=== PATIENT | male | born 1935 ===

== ENCOUNTER 2018-12-03 04:52 | Emergency (ER) | payer MEDICARE ==
--- OUTSIDE RECORDS SUMMARY | 2018-12-03 05:04 | XMS REPORT | Continuity of Care Document ---
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 Problems Description No Information Available Social History Type Date Description Comments Sex Unknown Tobacco Use Start: Unknown Nonsmoker ETOH Use Denies alcohol use Tobacco Use Start: Unknown Nonsmoker Smoking Status Reviewed: 11/19/18 Nonsmoker Allergies, Adverse Reactions, Alerts Description No Known Drug Allergies Medications Active Medications SIG Qnty Indications Ordering Date Provider Nystatin swish and swallow 500ml B37.0 Fide Wasserman 11/19/2018 [id number] 5ml of solution 4 London, TRACTOR CRANE OPERATOR Suspension times a day x 7-10 days Triamcinolone apply to affected 80gm R21 Fide Wasserman 11/05/2018 Acetonide skin on legs London, TRACTOR CRANE OPERATOR 0.1% Cream twice daily as needed for up to 14 days Doxycycline Hyclate one tab by mouth 42tabs Fide Wasserman 10/29/2018 100mg twice a day London, TRACTOR CRANE OPERATOR Tablets History Medications Triamcinolone Acetonide apply to affected 80gm R21 Fide Ann 10/12/2018 - skin on legs London, TRACTOR CRANE OPERATOR 11/02/2018 0.1% Cream twice daily as needed for up to 14 days No Active Medications Unknown 10/02/2018 - 10/12/2018 Immunizations Description No Information Available Vital Signs Date Vital Result Comment 11/19/2018 9:30am BP Systolic 118 mmHg BP Diastolic 56 mmHg Heart Rate 90 /min Body Temperature 97.7 F Respiratory Rate 16 /min Height 68.5 inches 5'8.50" measured Weight 123.00 lb BMI (Body Mass Index) 18.4 kg/m2 10/12/2018 4:14pm BP Systolic 122 mmHg BP Diastolic 60 mmHg Heart Rate 96 /min Body Temperature 98.6 F Height 68.5 inches 5'8.50" measured Weight 131.00 lb BMI (Body Mass Index) 19.6 kg/m2 Results Test Date Facility Test Result H/L Range Note Lyme Disease AB 10/23/2018 [facility] IgG Immunoblot Positive Abnormal Negative Immunoblot WB IgG detected against See Comment kDa 1 IgM Immunoblot Positive Abnormal Negative IgM detected against p41,p23 kDa Lyme Disease Interpretation See Comment 2 Laboratory test 10/15/2018 [facility] Hemoglobin A1c 5.7% % 4.1- 5.7 finding (607)- - (Fma) HCV AB (Fma) neg negative Hepatitis B Virus 10/15/2018 [facility] HBsAg Screen Negative Negative 3 (Profile ) [address] [place] [address] (607)- - Hep Be Ag Negative Negative Hep B Core Ab, IgM Negative Negative Hep B Core Ab, Tot Negative Negative Hep B Surface Ab, Qual Non Reactive 4 Hep Be Ab Negative Negative Laboratory test 10/15/2018 [facility]) PSA 0.3 ng/mL 0.0-4.0 finding Alkaline Phos 10/03/2018 [facility] Alkaline 125 U/L 40 - 129 Isoenzymes Phosphatase Alp Liver 1% 54.2 % 27.8-76.3 Alp Liver 1 67.8 IU/L 16.2-70.2 Alp Liver 2% 10.7 % Abnormal 0.0-8.0 Alp Liver 2 13.4 IU/L Abnormal 0.0-5.8 Alp Bone % 35.1 % 19.1-67.7 Alp Bone 43.9 IU/L Abnormal 12.1-42.7 Alp Intestine % 0.0 % 0.0-20.6 Alp Intestine 0.0 IU/L 0.0-11.0 Alp Placental NotPresent 5 Jessica Panel--LD ([facility]) 10/02/2018 [facility] Rheumatoid Factor < 10 IU/mL Normal < 15 6 U1 DEVELOPMENTAL SERVICES WORKER/SNRNP Igg Autoabs 10/02/2018 [facility] U1 DEVELOPMENTAL SERVICES WORKER IgG Autoabs 0.4 U 7 Ssa/SSB Abs Igg 10/02/2018 [facility] SS-A/Ro Antibody 0.3 U 8 SS-B/La Antibody <0.2 U 9 Connective Tissue Panel 10/02/2018 [facility] Anti-Nuclear Antibody 1.9 U High 10 Cyclic Citrullinated Peptide 29.0 U Abnormal 11 Interpretation See Comment 12 Tick-Borne Disease AB 10/02/2018 [facility] Anaplasma phagocytophilium <1:64 titer <1:64 13 Panel Babesiosis Evaluation <1:64 titer <1:64 14 Ehrlichia chaffeensis IgG AB <1:64 titer <1:64 15 Lyme Disease Serology Positive Negative 16 Laboratory test finding 10/02/2018 [facility] C Reactive Protein 74.11 mg/L High <8.01 17 Syphillis Igg W/Reflex RPR Negative Negative 18 Herpes Simplex PCR 10/02/2018 [facility] Herpes Source penis HSV 1 PCR Negative Negative HSV 2 PCR Negative Negative 19 Varicella Zoster Culture 10/02/2018 [facility] Varicella Zoster Source penis Varicella Zoster Result Negative Negative 20 Laboratory test 10/02/2018 [facility] Troponin-I/TnI <0.05 NG/ML 0- 0.64 finding (607)- - HIV 1&2 Antibody Screen (Fma) neg Negative Sedimentation Rate 78mm Comprehensive Metabolic 10/02/2018 [facility]) Sodium 136 mEq/L 134-149 Prof Potassium 4.2 mEq/L 3.6-5.5 Chloride 97 mEq/L 94-112 Carbon Dioxide 25 mEq/L 21-32 Glucose 166 mg/dL High 70-105 BUN 8 mg/dL 6-26 21 Creatinine 0.7 mg/dL 0.6-1.4 BUN/Creat Ratio 11.4 CALC 8.0-36.0 Calcium 8.5 mg/dL Low 8.6-10.2 22 Total Protein 6.6 g/dL 6.4-8.3 23 Albumin 3.6 g/dL Low 3.8-5.5 24 Globulin 3.0 g/dL 2.0-4.8 A/G Ratio 1.2 CALC 0.6-2.3 Alk. Phosphatase 106 U/L High 22-95 25 Alt (SGPT) 14 U/L 7-35 Ast (Sgot) 15 U/L 5-34 Total Bilirubin 0.8 mg/dL 0.2-1.3 GFR Non- >60 ml/min/1.73m^ >=60 GFR >60 ml/min/1.73m^ >=60 Laboratory test finding 10/02/2018 [facility](a) TSH 3.80 mIU/L 0.50-6.00 CBC Electronic Fma 10/02/2018 [facility](a) WBC 8.8 x10^3/UL 4.0- 10.0 RBC 4.43 x10^6/UL 3.93-6.00 HGB 12.4 g/dL 12.0-17.0 HCT 38 % 35-50 MCV 85.8 fL 80.0-95.0 MCH 28.0 pg 25.6-32.2 MCHC 32.6 g/dL 32.2-36.0 RDW-CV 15.0 % High 11.6-14.4 26 PLT 244 x10^3/UL 163-400 MPV 11.1 fL 9.4-12.4 Delmi# 6.73 x10^3/UL High 1.56-6.13 27 Lymph# 1.03 x10^3/UL Low 1.18-3.74 28 Colquitt# 0.91 x10^3/UL High 0.24-0.82 29 Eos # 0.1 x10^3/UL 0.0-0.5 Baso # 0.02 x10^3/UL 0.01-0.08 Delmi% 76.3 % High 34.0-70.0 30 Lymph % 11.7 % Low 20.0-52.0 31 [place]itt% 10.3 % 5.0-12.0 Eos% 1.4 % 0.7-7.0 Baso% 0.2 % 0.1-1.2 1 RESULT: p66,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 IgM blot criteria is of diagnostic utility only during the first 4 weeks of early Lyme disease. ADDITIONAL INFORMATION Per CDC criteria, the Lyme IgG Immunoblot is interpreted as positive if IgG-class antibodies are detected to >=5 B. burgdorferi proteins, and the Lyme IgM Immunoblot is interpreted as positive if IgM-class antibodies are detected to >=2 B. burgdorferi proteins. Immunoblot patterns not meeting these criteria should not be interpreted as positive. Epitopes from certain B. burgdorferi proteins (e.g., p41) are conserved across other bacteria, which may lead to the detection of IgM- and/or IgG-class antibodies on the Lyme disease immunoblots in patients without Lyme disease. Immunoblot should only be ordered on specimens that are positive or equivocal by a FDA-licensed Lyme disease antibody screening test (e.g., EIA). Results of the Lyme IgM immunoblot should not be considered in patients with >= 30 days of symptoms. Test Performed by: [facility] [place] [address] 3 1 sst 4 Non Reactive: Inconsistent with immunity, less than 10 mIU/mL Reactive: Consistent with immunity, greater than 9.9 mIU/mL 5 REFERENCE VALUE Not present Test Performed by: [facility] - [address] [id number] 6 3 gold top sst tubes sent viral culture (penile) [id number] 7 REFERENCE VALUE <1.0 (Negative) Test Performed by: [facility] - [address] [address] 8 REFERENCE VALUE <1.0 (Negative) 9 REFERENCE VALUE <1.0 (Negative) Test Performed by: [address] [id number] 10 Interpretation: Weak Positive (1.1-2.9) REFERENCE VALUE <=1.0 (Negative) 11 Interpretation: Weak Positive (20.0-39.9) REFERENCE VALUE <20.0 (Negative) 12 RESULT: Compatible with rheumatoid arthritis. Test Performed by: [facility] - [address] [id number] 13 ADDITIONAL INFORMATION This test was developed using an analyte specific reagent. Its performance characteristics were determined by [facility] in a manner consistent with CLIA requirements. This test has not been cleared or approved by the U.S. Food and Drug Administration. 14 ADDITIONAL INFORMATION This test was developed using an analyte specific reagent. Its performance characteristics were determined by [facility] in a manner consistent with CLIA requirements. This test has not been cleared or approved by the U.S. Food and Drug Administration. 15 ADDITIONAL INFORMATION This test was developed using an analyte specific reagent. Its performance characteristics were determined by [facility] in a manner consistent with CLIA requirements. This test has not been cleared or approved by the U.S. Food and Drug Administration. 16 Not diagnostic. Supplemental testing by immunoblot has been ordered by reflex. Test Performed by: [facility] - [address] [address] 17 3 gold top sst tubes sent viral culture (penile) [id number] 18 3 gold top sst tubes sent viral culture (penile) [id number] 19 ADDITIONAL INFORMATION This test has been modified from the title 1 tutor's instructions. Its performance characteristics were determined by [facility] in a manner consistent with CLIA requirements. This test has not been cleared or approved by the U.S. Food and Drug Administration. Test Performed by: [facility] - [address] [address] 20 ADDITIONAL INFORMATION This test was developed and its performance characteristics determined by [facility] in a manner consistent with CLIA requirements. This test has not been cleared or approved by the U.S. Food and Drug Administration. Test Performed by: [facility] - [address] [address] 21 RESULTS VERIFIED BY REPEAT ANALYSIS 22 RESULTS VERIFIED BY REPEAT ANALYSIS 23 RESULTS VERIFIED BY REPEAT ANALYSIS 24 RESULTS VERIFIED BY REPEAT ANALYSIS 25 RESULTS VERIFIED BY REPEAT ANALYSIS 26 RESULTS VERIFIED BY REPEAT ANALYSIS 27 RESULTS VERIFIED BY REPEAT ANALYSIS 28 RESULTS VERIFIED BY REPEAT ANALYSIS 29 RESULTS VERIFIED BY REPEAT ANALYSIS 30 RESULTS VERIFIED BY REPEAT ANALYSIS 31 RESULTS VERIFIED BY REPEAT ANALYSIS Procedures Date Code Description Status 10/02/2018 52738 Electrocardiogram Complete Completed Medical Devices Description No Information Available Encounters Type Date Location Provider Dx Diagnosis Office Visit 10/12/2018 [facility] Office Fide Wasserman R21 Rash and other 4:15p GINA London nonspecific skin eruption R73.01 Impaired fasting glucose R94.5 Abnormal results of liver function studies Z12.5 Encounter for screening for malignant neoplasm of prostate Z11.59 Encounter for screening for other viral diseases Office Visit 10/02/2018 10:30a [facility] Office Bjorn Harely, R53.81 Other malaise M.D. Z11.4 Encounter for screening for human immunodeficiency virus Assessments Date Code Description Provider 11/19/2018 B37.0 Candidal stomatitis Fide London NP 11/19/2018 A69.20 Lyme disease, unspecified Fide London NP 11/19/2018 R94.5 Abnormal results of liver function studies Fide London NP 11/19/2018 R63.4 Abnormal weight loss iFde London NP 10/15/2018 R73.01 Impaired fasting glucose Fide London NP 10/15/2018 Z11.59 Encounter for screening for other viral Fide London NP diseases 10/15/2018 Z12.5 Encounter for screening for malignant Fide Lisy London NP neoplasm of prostate 10/12/2018 R21 Rash and other nonspecific skin eruption Fide London NP 10/12/2018 R73.01 Impaired fasting glucose Fide London NP 10/12/2018 R94.5 Abnormal results of liver function studies Fide London NP 10/12/2018 Z12.5 Encounter for screening for malignant Fide Lnodon NP neoplasm of prostate 10/12/2018 Z11.59 Encounter for screening for other viral Fide London NP diseases 10/02/2018 R53.81 Other malaise Bjorn Harley M.D. 10/02/2018 Z11.4 Encounter for screening for human Bjorn Harley M.D. immunodeficiency virus [HIV] Plan of Treatment Future Appointment(s):12/17/2018 4:30 pm - Bjorn [facility] M.D. at [facility]11/19/2018 - Fide London NPB37.0 Candidal stomatitisNew Medication :Nystatin [id number] Unit/ML - swish and swallow 5ml of solution 4 times a day x 7- 10 daysComments:patient instructed to call back if condition fails to improve or worsens.A69.20 Lyme disease, unspecifiedComments:What is Lyme disease?Lyme disease is an illness that can make you feel like you have the flu. It canalso cause a rash, fever, or nerve, joint, or heart problems.People can get Lyme disease after beingbitten by a tiny insect called a tick. When a certain type of tick bites you, it can transmit the germ that causes Lyme disease from its body to yours. But a tick can infect you only if it stays attached for at least a day and a half.The ticks that carry Lyme disease feed on deer and mice. They are only about the size of a poppy seed when they are young, which is when they most often spread Lyme disease. They grow to about the size of a sesame seed as adults (figure 1). Ticks are found in tall grassand on shrubs, and can attach to animals and people walking by. Ticks cannot fly or jump.What are the symptoms of Lyme disease?Symptoms can start days or weeks after a tick bite. They include:A rash where you were bitten ?? The rash often appears within a month of getting bitten. It is red, but its center can be the color of your skin. It might get bigger over a few days. To some, it looks like a "bull's eye " (picture 1).FeverFeeling tiredBody aches and painsHeart problems such as a slowed heart rateHeadache and stiff neckFeelings of pain, weakness, or numbnessIf a person is not treated, further symptoms can occur months to years after a tick bite. These include:Pain and swelling of joints, such as your kneesTrouble with your memory and thinkingSkin problems, such as skin swelling or thinning (this occurs mostly in [place])Should I see a doctor or nurse?Yes. If you have symptoms of Lyme disease, see a doctor or nurse. Some people don't know that they were bitten by a tick. Or they might not remember having a rash or other early symptoms.Is there a test for Lyme disease?Yes. Blood tests can showif you are infected with the germ that causes Lyme disease. But it takes time for the blood tests toturn positive. This means the tests won't work if you get them right after being bitten. Also, the blood tests usually come back negative when you have the initial rash that goes with Lyme disease. Because of this, if you have the rash, you do not need a blood test to confirm that you have Lyme disease.If your doctor or nurse suspects you have Lyme disease, he or she will do an exam and ask you questions. The doctor or nurse will use this information (and your blood test result, if needed) to decideabout treatment.How is Lyme disease treated?Lyme disease is usually treated with antibiotics. There are a few different types. Treatment with antibiotics should help your symptoms go away. Sometimes, symptoms improve quickly. Other times, it can take weeks or months for symptoms to go away.What if I am ?If you are , talk to your doctor. Some medicines for Lyme disease are safe to takeif you are , but others are not.Can Lyme disease be prevented? The best way to prevent Lyme disease is to avoid getting bitten by a tick. But if you were already bitten, your doctor might give you an antibiotic. In some situations, this can reduce your chances of getting Lyme disease.To try to avoid getting bitten by a tick, you can:Wear shoes, long-sleeved shirts, and long pants when you go outside. Keep ticks away from your skin by tucking your pants into your socks.Wear light colors so youcan spot any ticks that get on your clothes.Wear bug spray or cream that contains DEET. (Do not use DEET on babies younger than 2 months.) On your clothes and gear, you can use bug repellents that havea chemical called "permethrin."Shower within 2 hours of being outdoors if you think you have been inan area where there are ticks.Put dry clothes briefly (for about 4 minutes) in a dryer after being outdoors.Check your clothes and body for ticks after being outdoors. Be sure to check your scalp, waist, armpits, groin, and backs of your knees. Check your children, too.If you live in a place that has deer or mice nearby, take steps to keep those animals away. [place] and mice carry ticks.If you find a tick on your body or on your child, use tweezers to grab it. Then pull it out slowly and gently. Afterthat, wash the area with soap and water.You do not need to keep the tick. But knowing what it lookedlike can help your doctor decide about your treatment. See if you can tell:Its color and sizeIf it was attached to your skin or just resting on your skinIf it was big, round, and full of bloodYou should see your doctor or nurse if you have a tick and you cannot get it off.You should also call your doctor or nurse if you think you have had a tick attached for at least 36 hours (a day and a half). Thenhe or she can decide if you need to take a dose of an antibiotic to help prevent Lyme. Doctors only recommend antibiotics to prevent Lyme disease in some situations. It depends on your age, where you live, what kind of tick bit you, and how long it was attached.If you or your child was bitten by a deer tick, you should watch the area around the bite for a month to see if a rash appears.Follow up:1 month with MDR94.5 Abnormal results of liver function mlybinsZ65.4 Abnormal weight lossComments:refer to gastro - per Chris Harleyments:Medication Management Patient Understands medications he 's taking? Yes No Are there Barriers to Adherence? Yes No Has the patient been asked about herbal supplements and therapies, andOTC meds? Yes No Care Plan1. Patient has been queried about patient's goals/preferences and functional/ lifestyle goals at relevant visits. If relevant, describe: na2. Treatment goals as explained to the patient: above3. Are there barriers to meeting treatment goals? Yes No If Yes, please describe: disease process 4. Self-Management goals as described to the patient: Yes NoAs always, we strongly encourage a healthy diet and making physical activity a part of your every day life. If you have questions about how or where to start, please contact the office. Functional Status Description No Information Available Mental Status Description No Information Available Referrals Description No Information Available
--- OUTSIDE RECORDS SUMMARY | 2018-12-03 05:05 | XMS REPORT | Continuity of Care Document ---
:1935 External Reference #:[id number] Author Name Fide London NP Address [address] [place] [address] Care Team Providers Name Role Phone Bjorn Harley MD - Family Medicine Care Team Information Brokerage Coordinator [phone] Problems Description No Information Available Social History Type Date Description Comments Sex Unknown Tobacco Use Start: Unknown Nonsmoker ETOH Use Denies alcohol use Tobacco Use Start: Unknown Nonsmoker Smoking Status Reviewed: 10/16/18 Nonsmoker Allergies, Adverse Reactions, Alerts Description No Known Drug Allergies Medications Active Medications SIG Qnty Indications Ordering Provider Date Triamcinolone Acetonide apply to affected 80gm R21 Fide Wasserman 10/12/2018 skin on legs GINA London 0.1% Cream twice daily as needed for up to 14 days History Medications No Active Medications Unknown 10/02/2018 - 10/12/2018 Immunizations Description No Information Available Vital Signs Date Vital Result Comment 10/12/2018 4:14pm BP Systolic 122 mmHg BP Diastolic 60 mmHg Heart Rate 96 /min Body Temperature 98.6 F Height 68.5 inches 5'8.50" measured Weight 131.00 lb BMI (Body Mass Index) 19.6 kg/m2 10/02/2018 10:40am BP Systolic 114 mmHg BP Diastolic 62 mmHg Heart Rate 88 /min Body Temperature 98.4 F Respiratory Rate 12 /min Height 68.5 inches 5'8.50" measured Weight 132.00 lb BMI (Body Mass Index) 19.8 kg/m2 Results Test Date Facility Test Result H/L Range Note Laboratory test 10/15/2018 [facility]) PSA (ALL Lab <pending> 0.0-4.0 finding Comp) Laboratory test 10/15/2018 [facility] Hemoglobin A1c 5.7% % 4.1- 5.7 finding (607)- - (Fma) HCV AB (a) <pending> negative Alkaline Phos Isoenzymes 10/03/2018 [facility] Alkaline Phosphatase 125 U/L 40 - 129 Alp Liver 1% 54.2 % 27.8-76.3 Alp Liver 1 67.8 IU/L 16.2-70.2 Alp Liver 2% 10.7 % Abnormal 0.0-8.0 Alp Liver 2 13.4 IU/L Abnormal 0.0-5.8 Alp Bone % 35.1 % 19.1-67.7 Alp Bone 43.9 IU/L Abnormal 12.1-42.7 Alp Intestine % 0.0 % 0.0-20.6 Alp Intestine 0.0 IU/L 0.0-11.0 Alp Placental NotPresent 1 Jessica Panel--LD ([facility]) 10/02/2018 [facility] Rheumatoid Factor < 10 IU/mL N <15 2 U1 MAIL SERVICE COORDINATOR/SNRNP Igg Autoabs 10/02/2018 [facility] U1 MAIL SERVICE COORDINATOR IgG Autoabs 0.4 U 3 Ssa/SSB Abs Igg 10/02/2018 [facility] SS-A/Ro Antibody 0.3 U 4 SS-B/La Antibody <0.2 U 5 Connective Tissue Panel 10/02/2018 [facility] Anti-Nuclear Antibody 1.9 U High 6 Cyclic Citrullinated Peptide 29.0 U Abnormal 7 Interpretation See Comment 8 Tick-Borne Disease AB 10/02/2018 [facility] Anaplasma phagocytophilium <1:64 titer <1:64 9 Panel Babesiosis Evaluation <1:64 titer <1:64 10 Ehrlichia chaffeensis IgG AB <1:64 titer <1:64 11 Lyme Disease Serology Positive Negative 12 Laboratory test finding 10/02/2018 [facility] C Reactive Protein 74.11 mg/L High <8.01 13 Syphillis Igg W/Reflex RPR Negative Negative 14 Viral Culture Non Respiratory <pending> Herpes Simplex PCR 10/02/2018 [facility] Herpes Source penis HSV 1 PCR Negative Negative HSV 2 PCR Negative Negative 15 Varicella Zoster Culture 10/02/2018 [facility] Varicella Zoster Source penis Varicella Zoster Result Negative Negative 16 Laboratory test 10/02/2018 [facility] Troponin-I/TnI <0.05 NG/ML 0- 0.64 finding (607)- - HIV 1&2 Antibody Screen (a) neg Negative Sedimentation Rate 78mm Comprehensive Metabolic 10/02/2018 [facility]) Sodium 136 mEq/L 134-149 Prof Potassium 4.2 mEq/L 3.6-5.5 Chloride 97 mEq/L 94-112 Carbon Dioxide 25 mEq/L 21-32 Glucose 166 mg/dL High 70-105 BUN 8 mg/dL 6-26 17 Creatinine 0.7 mg/dL 0.6-1.4 BUN/Creat Ratio 11.4 CALC 8.0-36.0 Calcium 8.5 mg/dL Low 8.6-10.2 18 Total Protein 6.6 g/dL 6.4-8.3 19 Albumin 3.6 g/dL Low 3.8-5.5 20 Globulin 3.0 g/dL 2.0-4.8 A/G Ratio 1.2 CALC 0.6-2.3 Alk. Phosphatase 106 U/L High 22-95 21 Alt (SGPT) 14 U/L 7-35 Ast (Sgot) 15 U/L 5-34 Total Bilirubin 0.8 mg/dL 0.2-1.3 GFR Non- >60 ml/min/1.73m^ >=60 GFR >60 ml/min/1.73m^ >=60 Laboratory test finding 10/02/2018 [facility]) TSH 3.80 mIU/L 0.50-6.00 CBC Electronic a 10/02/2018 [facility]) WBC 8.8 x10^3/UL 4.0- 10.0 RBC 4.43 x10^6/UL 3.93-6.00 HGB 12.4 g/dL 12.0-17.0 HCT 38 % 35-50 MCV 85.8 fL 80.0-95.0 MCH 28.0 pg 25.6-32.2 MCHC 32.6 g/dL 32.2-36.0 RDW-CV 15.0 % High 11.6-14.4 22 PLT 244 x10^3/UL 163-400 MPV 11.1 fL 9.4-12.4 Delmi# 6.73 x10^3/UL High 1.56-6.13 23 Lymph# 1.03 x10^3/UL Low 1.18-3.74 24 Coryell# 0.91 x10^3/UL High 0.24-0.82 25 Eos # 0.1 x10^3/UL 0.0-0.5 Baso # 0.02 x10^3/UL 0.01-0.08 Delmi% 76.3 % High 34.0-70.0 26 Lymph % 11.7 % Low 20.0-52.0 27 Coryell% 10.3 % 5.0-12.0 Eos% 1.4 % 0.7-7.0 Baso% 0.2 % 0.1-1.2 1 REFERENCE VALUE Not present Test Performed by: [facility] [address] [place] [address] 2 3 gold top sst tubes sent viral culture (penile) [id number] 3 REFERENCE VALUE <1.0 (Negative) Test Performed by: [facility] [address] [place] [address] 4 REFERENCE VALUE <1.0 (Negative) 5 REFERENCE VALUE <1.0 (Negative) Test Performed by: [facility] [address] [place] [address] 6 Interpretation: Weak Positive (1.1-2.9) REFERENCE VALUE <=1.0 (Negative) 7 Interpretation: Weak Positive (20.0-39.9) REFERENCE VALUE <20.0 (Negative) 8 RESULT: Compatible with rheumatoid arthritis. Test Performed by: [facility] - [address] [address] 9 ADDITIONAL INFORMATION This test was developed using an analyte specific reagent. Its performance characteristics were determined by [facility] in a manner consistent with CLIA requirements. This test has not been cleared or approved by the U.S. Food and Drug Administration. 10 ADDITIONAL INFORMATION This test was developed using an analyte specific reagent. Its performance characteristics were determined by [facility] in a manner consistent with CLIA requirements. This test has not been cleared or approved by the U.S. Food and Drug Administration. 11 ADDITIONAL INFORMATION This test was developed using an analyte specific reagent. Its performance characteristics were determined by [facility] in a manner consistent with CLIA requirements. This test has not been cleared or approved by the U.S. Food and Drug Administration. 12 Not diagnostic. Supplemental testing by immunoblot has been ordered by reflex. Test Performed by: [facility] - [address] [address] 13 3 gold top sst tubes sent viral culture (penile) [id number] 14 3 gold top sst tubes sent viral culture (penile) [id number] 15 ADDITIONAL INFORMATION This test has been modified from the air export agent's instructions. Its performance characteristics were determined by [facility] in a manner consistent with CLIA requirements. This test has not been cleared or approved by the U.S. Food and Drug Administration. Test Performed by: [facility] [address] [place] [address] 16 ADDITIONAL INFORMATION This test was developed and its performance characteristics determined by [facility] in a manner consistent with CLIA requirements. This test has not been cleared or approved by the U.S. Food and Drug Administration. Test Performed by: [facility] - [address] [address] 17 RESULTS VERIFIED BY REPEAT ANALYSIS 18 RESULTS VERIFIED BY REPEAT ANALYSIS 19 RESULTS VERIFIED BY REPEAT ANALYSIS 20 RESULTS VERIFIED BY REPEAT ANALYSIS 21 RESULTS VERIFIED BY REPEAT ANALYSIS 22 RESULTS VERIFIED BY REPEAT ANALYSIS 23 RESULTS VERIFIED BY REPEAT ANALYSIS 24 RESULTS VERIFIED BY REPEAT ANALYSIS 25 RESULTS VERIFIED BY REPEAT ANALYSIS 26 RESULTS VERIFIED BY REPEAT ANALYSIS 27 RESULTS VERIFIED BY REPEAT ANALYSIS Procedures Date Code Description Status 10/02/2018 69537 Electrocardiogram Complete Completed Medical Devices Description No Information Available Encounters Type Date Location Provider Dx Diagnosis Office Visit 10/02/2018 [facility] Office Bjorn Harley, R53.81 Other malaise 10:30a M.DHuong Z11.4 Encounter for screening for human immunodeficiency virus Assessments Date Code Description Provider 10/15/2018 R73.01 Impaired fasting glucose Fide London NP 10/15/2018 Z11.59 Encounter for screening for other viral Fide London NP diseases 10/15/2018 Z12.5 Encounter for screening for malignant Fide London NP neoplasm of prostate 10/12/2018 R21 Rash and other nonspecific skin eruption Fide London NP 10/12/2018 R73.01 Impaired fasting glucose Fide London NP 10/12/2018 R94.5 Abnormal results of liver function studies Fide London NP 10/12/2018 Z12.5 Encounter for screening for malignant Fide London NP neoplasm of prostate 10/12/2018 Z11.59 Encounter for screening for other viral Fide London NP diseases 10/02/2018 R53.81 Other malaise Bjorn Harley M.D. 10/02/2018 Z11.4 Encounter for screening for human Bjorn A. Darlow, M.D. immunodeficiency virus [HIV] Plan of Treatment 10/12/2018 - Fidefrank London, NPR21 Rash and other nonspecific skin eruptionNew Medication:Triamcinolone Acetonide 0.1 % - apply to affected skin on legs twice daily as needed for up to 14 daysComments:Supportive Care: avoid new lotions, soaps, laundry detergentavoid sun exposure to rashavoid itching if possible keep rash clean and dryTake medications as directed.If rash worsens or is not responsive to therapy, please return to office or seek medical attention.R73.01 Impaired fasting glucoseComments:Counseled on heart healthy diet and exercise; limiting carbs and portion control, at least 30 minutes of physical activity daily; consider Mediterranean diet as a guide for healthy eating ; A1c> 6.5is diagnostic of pgltzoxgH56.5 Abnormal results of liver function studiesNew Xrays:Ultrasound Abdominal Limited, Ordered: Comments:will get liver [id number] Encounter for screening for malignant neoplasm of prostateComments:PSA has been dunpjrpC89.59 Encounter for screening for other viral diseasesComments:Hepatitis C Screening performedAllComments: Medication Management Patient Understands medications he 's taking? Yes No Are there Barriers to Adherence? Yes No Has the patient been asked about herbal supplements and therapies, andOTC meds? Yes No Care Plan1. Patient has been queried about patient's goals/preferences and functional/lifestyle goals at relevant visits. If relevant, describe: na2. Treatment goals as explained to the patient: above3. Are there barriers to meeting treatment goals? Yes No If Yes, please describe: disease process 4. Self-Management goals as described to the patient: Yes NoAs always , we strongly encourage a healthy diet and making physical activity a part of your every day life. If you have questions about how or where to start, please contact the office. Functional Status Description No Information Available Mental Status Description No Information Available Referrals Description No Information Available
--- NOTE | 2018-12-03 05:16 | ED ---
Abdominal Pain/Male - HPI Summary HPI Summary: The patient is an 83 y/o M presenting to [facility] with a chief complaint of nausea, vomiting, and abd pain for the last day. He reports that he was diagnosed with Lyme disease by PCP with symptoms of joint pain, fatigue, and rashes on the calves. He was then started on Doxycycline and symptoms had been alleviated. He is now c/o the GI symptoms which are new for him starting a few weeks ago with worsening last night. The pain is described as a pressure in the epigastric and upper abdominal region, which he has once resolved before after lasting for only an hour, but now the pain has persisted. Currently, his symptoms are rated 7/10 in severity. There are no aggravating or alleviating factors. He states he had a vegetable stir herrera and water at dinner time. He didnt have any nausea or vomiting then. He denies any fevers, chills, diarrhea, hematuria, or urinary retention. Recently had US with reason for elevated liver functioning tests, which showed gallstones. No PMHx. Nonsmoker, no EtOH, no substance use. Medications reviewed. Allergies noted. - History of Current Complaint Chief Complaint: EDAbdPain Stated Complaint: ABD PAIN PER PT Time Seen by Provider: 12/03/18 05:07 Hx Obtained From: Patient Onset/Duration: Sudden Onset, Lasting Hours - one day, Still Present Timing: Constant, Lasting Hours Severity Initially: Mild Severity Currently: Moderate Pain Intensity: 7 Pain Scale Used: 0-10 Numeric Location: Epigastric Radiates: No Character: Other: - pressure Aggravating Factor(s): Nothing Alleviating Factor(s): Nothing Associated Signs And Symptoms: Positive: Nausea, Vomiting, Other - Negative: chills. Negative: Fever, Urinary Symptoms - including hematuria, urinary retention - Allergies/Home Medications Allergies/Adverse Reactions: Allergies Allergy/AdvReac Type Severity Reaction Status Date / Time No Known Allergies Allergy Verified 12/03/18 04:56 PMH/Surg Hx/FS Hx/Imm Hx Endocrine/Hematology History: Denies: Hx Diabetes, Hx Thyroid Disease Cardiovascular History: Denies: Hx Hypertension Respiratory History: Denies: Hx Asthma, Hx Chronic Obstructive Pulmonary Disease (COPD) GI History: Denies: Hx Ulcer Sensory History: Denies: Hx Legally Blind, Hx Deafness Opthamlomology History: Denies: Hx Legally Blind EENT History: Denies: Hx Deafness - Surgical History Surgical History: None Surgery Procedure, Year, and Place: no abdominal surgery Infectious Disease History: No Infectious Disease History: Denies: Hx Hepatitis, Hx Human Immunodeficiency Virus (HIV), Traveled Outside the [place] in Last 30 Days - Family History Known Family History: Negative: Cardiac Disease - Social History Alcohol Use: None Hx Substance Use: No Substance Use Type: Reports: None Hx Tobacco Use: No Smoking Status (MU): Never Smoked Tobacco Review of Systems Negative: Fever, Chills Positive: Abdominal Pain - epigastric pressure, Vomiting, Nausea. Negative: Diarrhea Positive: other - Negative: urinary retention.. Negative: hematuria All Other Systems Reviewed And Are Negative: Yes Physical Exam - Summary Physical Exam Summary: Appearance: Well-appearing, Well-nourished, lying in bed comfortably Skin: Warm, dry, no obvious rash Eyes: sclera anicteric, no conjunctival pallor ENT: mucous membranes moist, pharynx appears normal Neck: Supple, nontender Respiratory: Clear to auscultation, no signs of respiratory distress Cardiovascular: Normal S1, S2. No murmurs. Normal distal pulses in tibial and radial bilaterally. Abdomen: Soft, nontender, normal active bowel sounds present Musculoskeletal: Normal, Strength/ROM Intact Neurological: A&Ox3, awake and alert, mentation is normal, speech is fluent and appropriate Psychiatric: affect is normal, does not appear anxious or depressed Triage Information Reviewed: Yes Vital Signs On Initial Exam: Initial Vitals Temp Pulse Resp BP Pulse Ox 98.7 F 81 18 173/76 99 12/03/18 04:53 12/03/18 04:53 12/03/18 04:53 12/03/18 04:53 12/03/18 04:53 Vital Signs Reviewed: Yes Diagnostics - Vital Signs Vital Signs Temp Pulse Resp BP Pulse Ox 12/03/18 04:53 98.7 F 81 18 173/76 99 - Laboratory Lab Statement: Any lab studies that have been ordered have been reviewed, and results considered in the medical decision making process. Re-Evaluation - Re-Evaluation First Eval Re-Evaluation Time: 06:15 Change: Unchanged Comment: Mr. Ferrara elected to not pursue further investigations/treatment here today. Since his exam is fairly benign I think it is ok for him to be discharged at his request now, and he says he will followup with his regular doctor if this problem persists. Abdominal Pain Male Course/Dx - Course Course Of Treatment: Pt is an 83 y/o M with cc of epigastric and upper abdominal pain sudden onset three days ago with recent Abd US revealing gallstones. Upon physical exam, the pt exhibits no acute abnormalities. In the ED course, the pt was administered fluids. UA obtained and reveals 1+ ketones. Blood work ordered with plan for Gallbladder US to rule out cholecysitis, however, pt elected to decline US and further treatment in the ED. He is recommended to follow up with his PCP for continued pain. He understands and agrees with this plan. Dx is upper abdominal pain and cholelithiasis. - Diagnoses Provider Diagnoses: Upper abdominal pain, Cholelithiasis Discharge ED - Sign-Out/Discharge Documenting (check all that apply): Patient Departure - Patient will be discharged home. Patient Received Moderate/Deep Sedation with Procedure: No - Discharge Plan Condition: Good Disposition: HOME Patient Education Materials: Acute Abdominal Pain (ED) Referrals: Bjorn Harley MD [Primary Care Provider] - As Soon As Possible - Billing Disposition and Condition Condition: GOOD Disposition: Home - Attestation Statements Document Initiated by Sadie: Yes Documenting Scribe: Stormy Medel Provider For Whom Sadie is Documenting (Include Credential): Dr. Valentino Mendez MD Scribe Attestation: Stormy Perkins scribed for Dr. Valentino Mendez MD on 12/03/18 at 1849. Scribe Documentation Reviewed: Yes Provider Attestation: The documentation as recorded by the Stormy goncalves accurately reflects the service I personally performed and the decisions made by me, Dr. Valentino Mendez MD Status of Scribe Document: Viewed
[2018-12-03] MEDS ORDERED: NS 0.9% 1000 ML** 1,000 ML IV ONE (05:29)
[2018-12-03 05:46] LABS: Urine Appearance Clear; Urine Bilirubin Negative (Negative); Urine Blood Negative (Negative); Urine Color Yellow; Urine Glucose Negative (Negative); Urine Ketones 1+ (Negative); Urine Nitrite Negative (Negative); Urine Protein Negative (Negative); Urine Specific Gravity 1.013 (1.010-1.030); Urine Urobilinogen Negative (Negative)
[2018-12-03 06:31] VITALS: BP 163/93
== END 2018-12-03 06:30 | disposition home or self-care (01) ==
LOC: ED 04:52
DX: K80.20 Calculus of gallbladder without cholecystitis without obstruction (principal); R10.10 Upper abdominal pain, unspecified
CPT/HCPCS: 81003; 96360; 99282

== ENCOUNTER 2018-12-04 12:15 | Inpatient (IN) | payer MEDICARE ==
--- OUTSIDE RECORDS SUMMARY | 2018-12-04 12:30 | XMS REPORT | Continuity of Care Document ---
:1935 External Reference #:[id number] Author Name DANIEL Quintanilla Address [address] [place] [address] Care Team Providers Name Role Phone Bjorn Harley MD - Family Medicine Care Team Information Hydrometeorologist Claudette Neal-Porsha - Care Team Information Hydrometeorologist [phone] Gastroenterology Problems Description No Information Available Social History Type Date Description Comments Sex Unknown Tobacco Use Start: Unknown Nonsmoker ETOH Use Denies alcohol use Tobacco Use Start: Unknown Nonsmoker Smoking Status Reviewed: 11/19/18 Nonsmoker Allergies, Adverse Reactions, Alerts Description No Known Drug Allergies Medications Active Medications SIG Qnty Indications Ordering Date Provider Triamcinolone apply to affected 80gm R21 Fide Wasserman 11/05/2018 Acetonide skin on legs [place], PLANNING LEAD 0.1% Cream twice daily as needed for up to 14 days Doxycycline Hyclate one tab by mouth 42tabs Fide Wasserman 10/29/2018 100mg twice a day [place], PLANNING LEAD Tablets History Medications Nystatin swish and swallow 500ml B37.0 Fide Wasserman 11/19/2018 - [id number]/ML 5ml of solution 4 [place], PLANNING LEAD 11/29/2018 Suspension times a day x 7-10 days Triamcinolone apply to affected 80gm R21 Fide Wasserman 10/12/2018 - Acetonide skin on legs [place], PLANNING LEAD 11/02/2018 0.1% Cream twice daily as needed for up to 14 days No Active Medications Unknown 10/02/2018 - 10/12/2018 Immunizations Description No Information Available Vital Signs Date Vital Result Comment 12/03/2018 2:48pm BP Systolic 148 mmHg BP Diastolic 68 mmHg Heart Rate 74 /min Body Temperature 97.5 F Respiratory Rate 20 /min Weight 128.00 lb 11/19/2018 9:30am BP Systolic 118 mmHg BP Diastolic 56 mmHg Heart Rate 90 /min Body Temperature 97.7 F Respiratory Rate 16 /min Height 68.5 inches 5'8.50" measured Weight 123.00 lb BMI (Body Mass Index) 18.4 kg/m2 Results Test Date Facility Test Result H/L Range Note Urinalysis Profile 12/03/2018 [facility] Urine Color Yellow Urine Appearance Clear Urine Specific Pelican 1.013 Normal 1.010-1.030 Urine pH 5.0 Normal 5-9 Urine Urobilinogen Negative Negative Urine Ketones 1+ Abnormal Negative Urine Protein Negative Negative Urine Leukocytes Negative Negative Urine Blood Negative Negative Urine Nitrite Negative Negative Urine Bilirubin Negative Negative Urine Glucose Negative Negative Comprehensive Metabolic 11/19/2018 [facility](fma) Sodium 137 mEq/L 134-149 Prof Potassium 4.1 mEq/L 3.6-5.5 Chloride 100 mEq/L 94-112 Carbon Dioxide 23 mEq/L 21-32 Glucose 195 mg/dL High 70-105 1 BUN 8 mg/dL 6-26 Creatinine 0.6 mg/dL 0.6-1.4 BUN/Creat Ratio 13.3 CALC 8.0-36.0 Calcium 8.7 mg/dL 8.6-10.2 Total Protein 6.9 g/dL 6.4-8.3 Albumin 4.1 g/dL 3.8-5.5 Globulin 2.8 g/dL 2.0-4.8 A/G Ratio 1.5 CALC 0.6-2.3 Alk. Phosphatase 71 U/L 22-95 Alt (SGPT) 13 U/L 7-35 Ast (Sgot) 17 U/L 5-34 Total Bilirubin 0.4 mg/dL 0.2-1.3 GFR Non- >60 ml/min/1.73m^ >=60 GFR >60 ml/min/1.73m^ >=60 Lyme Disease AB 10/23/2018 [facility] IgG Immunoblot Positive Abnormal Negative Immunoblot WB IgG detected against See Comment kDa 2 IgM Immunoblot Positive Abnormal Negative IgM detected against p41,p23 kDa Lyme Disease Interpretation See Comment 3 Laboratory test 10/15/2018 [facility] Hemoglobin A1c 5.7% % 4.1- 5.7 finding (607)- - (Fma) HCV AB (Fma) neg negative Hepatitis B Virus 10/15/2018 [facility] HBsAg Screen Negative Negative 4 (Profile ) [address] [place] [address] (607)- - Hep Be Ag Negative Negative Hep B Core Ab, IgM Negative Negative Hep B Core Ab, Tot Negative Negative Hep B Surface Ab, Qual Non Reactive 5 Hep Be Ab Negative Negative Laboratory test 10/15/2018 [facility](a) PSA 0.3 ng/mL 0.0-4.0 finding Alkaline Phos 10/03/2018 [facility] Alkaline 125 U/L 40 - 129 Isoenzymes Phosphatase Alp Liver 1% 54.2 % 27.8-76.3 Alp Liver 1 67.8 IU/L 16.2-70.2 Alp Liver 2% 10.7 % Abnormal 0.0-8.0 Alp Liver 2 13.4 IU/L Abnormal 0.0-5.8 Alp Bone % 35.1 % 19.1-67.7 Alp Bone 43.9 IU/L Abnormal 12.1-42.7 Alp Intestine % 0.0 % 0.0-20.6 Alp Intestine 0.0 IU/L 0.0-11.0 Alp Placental NotPresent 6 Jessica Panel--LD ([facility]) 10/02/2018 [facility] Rheumatoid Factor < 10 IU/mL Normal < 15 7 U1 PERENNIAL HOUSE MANAGER/SNRNP Igg Autoabs 10/02/2018 [facility] U1 PERENNIAL HOUSE MANAGER IgG Autoabs 0.4 U 8 Ssa/SSB Abs Igg 10/02/2018 [facility] SS-A/Ro Antibody 0.3 U 9 SS-B/La Antibody <0.2 U 10 Connective Tissue Panel 10/02/2018 [facility] Anti-Nuclear Antibody 1.9 U High 11 Cyclic Citrullinated Peptide 29.0 U Abnormal 12 Interpretation See Comment 13 Tick-Borne Disease AB 10/02/2018 [facility] Anaplasma phagocytophilium <1:64 titer <1:64 14 Panel Babesiosis Evaluation <1:64 titer <1:64 15 Ehrlichia chaffeensis IgG AB <1:64 titer <1:64 16 Lyme Disease Serology Positive Negative 17 Laboratory test finding 10/02/2018 [facility] C Reactive Protein 74.11 mg/L High <8.01 18 Syphillis Igg W/Reflex RPR Negative Negative 19 Herpes Simplex PCR 10/02/2018 [facility] Herpes Source penis HSV 1 PCR Negative Negative HSV 2 PCR Negative Negative 20 Varicella Zoster Culture 10/02/2018 [facility] Varicella Zoster Source penis Varicella Zoster Result Negative Negative 21 Laboratory test 10/02/2018 [facility] Troponin-I/TnI <0.05 NG/ML 0- 0.64 finding (607)- - HIV 1&2 Antibody Screen (Fma) neg Negative Sedimentation Rate 78mm Comprehensive Metabolic 10/02/2018 [facility](a) Sodium 136 mEq/L 134-149 Prof Potassium 4.2 mEq/L 3.6-5.5 Chloride 97 mEq/L 94-112 Carbon Dioxide 25 mEq/L 21-32 Glucose 166 mg/dL High 70-105 BUN 8 mg/dL 6-26 22 Creatinine 0.7 mg/dL 0.6-1.4 BUN/Creat Ratio 11.4 CALC 8.0-36.0 Calcium 8.5 mg/dL Low 8.6-10.2 23 Total Protein 6.6 g/dL 6.4-8.3 24 Albumin 3.6 g/dL Low 3.8-5.5 25 Globulin 3.0 g/dL 2.0-4.8 A/G Ratio 1.2 CALC 0.6-2.3 Alk. Phosphatase 106 U/L High 22-95 26 Alt (SGPT) 14 U/L 7-35 Ast (Sgot) 15 U/L 5-34 Total Bilirubin 0.8 mg/dL 0.2-1.3 GFR Non- >60 ml/min/1.73m^ >=60 GFR >60 ml/min/1.73m^ >=60 Laboratory test finding 10/02/2018 [facility](a) TSH 3.80 mIU/L 0.50-6.00 CBC Electronic Fma 10/02/2018 [facility](a) WBC 8.8 x10^3/UL 4.0- 10.0 RBC 4.43 x10^6/UL 3.93-6.00 HGB 12.4 g/dL 12.0-17.0 HCT 38 % 35-50 MCV 85.8 fL 80.0-95.0 MCH 28.0 pg 25.6-32.2 MCHC 32.6 g/dL 32.2-36.0 RDW-CV 15.0 % High 11.6-14.4 27 PLT 244 x10^3/UL 163-400 MPV 11.1 fL 9.4-12.4 Delmi# 6.73 x10^3/UL High 1.56-6.13 28 Lymph# 1.03 x10^3/UL Low 1.18-3.74 29 [place]# 0.91 x10^3/UL High 0.24-0.82 30 Eos # 0.1 x10^3/UL 0.0-0.5 Baso # 0.02 x10^3/UL 0.01-0.08 Delmi% 76.3 % High 34.0-70.0 31 Lymph % 11.7 % Low 20.0-52.0 32 [place]% 10.3 % 5.0-12.0 Eos% 1.4 % 0.7-7.0 Baso% 0.2 % 0.1-1.2 1 NON-FASTING 2 RESULT: p66,p45,p41,p39,p23,p18 3 Consistent with active or previous infection for [...] 30 days of symptoms. Test Performed by: [facility] [address] [place] [address] 4 1 sst 5 Non Reactive: Inconsistent with immunity, less than 10 mIU/mL Reactive: Consistent with immunity, greater than 9.9 mIU/mL 6 REFERENCE VALUE Not present Test Performed by: [facility] [address] [place] [address] 7 3 gold top sst tubes sent viral culture ([facility]) [id number] REFERENCE VALUE <1.0 (Negative) Test Performed by: [facility] [place] [address] 9 REFERENCE VALUE <1.0 (Negative) 10 REFERENCE VALUE <1.0 (Negative) Test Performed by: [facility] [address] [place] [address] 11 Interpretation: Weak Positive (1.1-2.9) REFERENCE VALUE <=1.0 (Negative) 12 Interpretation: Weak Positive (20.0-39.9) REFERENCE VALUE <20.0 (Negative) 13 RESULT: Compatible with rheumatoid arthritis. Test Performed by: [facility] [place] [address] 14 ADDITIONAL INFORMATION This test was developed using an analyte specific reagent. Its performance characteristics were determined by [facility] in a manner consistent with CLIA requirements. This test has not been cleared or approved by the U.S. Food and Drug Administration. 15 ADDITIONAL INFORMATION This test was developed using an analyte specific reagent. Its performance characteristics were determined by [facility] in a manner consistent with CLIA requirements. This test has not been cleared or approved by the U.S. Food and Drug Administration. 16 ADDITIONAL INFORMATION This test was developed using an analyte specific reagent. Its performance characteristics were determined by [facility] in a manner consistent with CLIA requirements. This test has not been cleared or approved by the U.S. Food and Drug Administration. 17 Not diagnostic. Supplemental testing by immunoblot has been ordered by reflex. Test Performed by: [facility] [employer] [facility] [address] [place] [address] 18 3 gold top sst tubes sent viral culture (penile) [id number] 3 gold top sst tubes sent viral culture (penile) [id number] ADDITIONAL INFORMATION This test has been modified from the vascular neurologist's instructions. Its performance characteristics were determined by [facility] in a manner consistent with CLIA requirements. This test has not been cleared or approved by the U.S. Food and Drug Administration. Test Performed by: [facility] [employer] - [address] [address] 21 ADDITIONAL INFORMATION This test was developed and its performance characteristics determined by [facility] in a manner consistent with CLIA requirements. This test has not been cleared or approved by the U.S. Food and Drug Administration. Test Performed by: [address] [id number] 22 RESULTS VERIFIED BY REPEAT ANALYSIS 23 RESULTS VERIFIED BY REPEAT ANALYSIS 24 RESULTS VERIFIED BY REPEAT ANALYSIS 25 RESULTS VERIFIED BY REPEAT ANALYSIS 26 RESULTS VERIFIED BY REPEAT ANALYSIS 27 RESULTS VERIFIED BY REPEAT ANALYSIS 28 RESULTS VERIFIED BY REPEAT ANALYSIS 29 RESULTS VERIFIED BY REPEAT ANALYSIS 30 RESULTS VERIFIED BY REPEAT ANALYSIS 31 RESULTS VERIFIED BY REPEAT ANALYSIS 32 RESULTS VERIFIED BY REPEAT ANALYSIS Procedures Date Code Description Status 10/02/2018 86918 Electrocardiogram Complete Completed Medical Devices Description No Information Available Encounters Type Date Location Provider Dx Diagnosis Office Visit 11/19/2018 Main Office Fide [place], B37.0 Candidal stomatitis 9:30a PLANNING LEAD A69.20 Lyme disease, unspecified R94.5 Abnormal results of liver function studies R63.4 Abnormal weight loss Office Visit 10/12/2018 4:15p [facility] Fide Wasserman R21 Rash and other GINA [place] nonspecific skin eruption R73.01 Impaired fasting glucose R94.5 Abnormal results of liver function studies Z12.5 Encounter for screening for malignant neoplasm of prostate Z11.59 Encounter for screening for other viral diseases Office Visit 10/02/2018 10:30a [facility] Bjorn RickHuong Harley, R53.81 Other malaise M.D. Z11.4 Encounter for screening for human immunodeficiency virus Assessments Date Code Description Provider 12/03/2018 R10.13 Epigastric pain DANIEL Quintanilla 11/19/2018 B37.0 Candidal stomatitis Fide [place], GINA 11/19/2018 A69.20 Lyme disease, unspecified Fide [place], GINA 11/19/2018 R94.5 Abnormal results of liver function studies Fide [place], GINA 11/19/2018 R63.4 Abnormal weight loss Fide [place] NP 10/15/2018 R73.01 Impaired fasting glucose Fide [place] NP 10/15/2018 Z11.59 Encounter for screening for other viral Fide [place] NP diseases 10/15/2018 Z12.5 Encounter for screening for malignant Fide [place] NP neoplasm of prostate 10/12/2018 R21 Rash and other nonspecific skin eruption Fide [place] NP 10/12/2018 R73.01 Impaired fasting glucose Fide [place] NP 10/12/2018 R94.5 Abnormal results of liver function studies Fide [place], GINA 10/12/2018 Z12.5 Encounter for screening for malignant Fide [place] NP neoplasm of prostate 10/12/2018 Z11.59 Encounter for screening for other viral Fide [place] , GINA diseases 10/02/2018 R53.81 Other malaise Bjorn Harley M.D. 10/02/2018 Z11.4 Encounter for screening for human Bjorn Harley M.D. immunodeficiency virus [HIV] Plan of Treatment Future Appointment(s):12/17/2018 4:30 pm - Bjorn [facility] M.D. at [facility]12/03/2018 - Pat Pastrana, PAR10.13 Epigastric painNew Labs:CCS-Comp Metabolic (Fma) Male, Ordered: 12/03/18CBC Electronic-ALL Lab Compani, Ordered: 12/03/18Amylase & Lipase, Ordered: 12/03/18Alk Phos Fractionated, Ordered: 12/03/18New Xrays:CT Abdomen & Pelvis W/O Contrast, Ordered: Comments:Obtain labs and imaging today. Emergency room for intense pain, vomiting.AllComments:PCMHMedication Management Patient Understands medications he's taking? Yes Are there Barriers to Adherence? No Has the patient been asked about herbal supplements and therapies, and OTC meds? Yes Care Plan1. Patient has been queried about patient's goals/preferences and functional/lifestyle goals at relevant visits. Yes If relevant, describe: N/A2. Treatment goals as explained to the patient: above3. Are there barriers to meeting treatment goals? No If Yes, please describe:4. Self-Management goals as described to the patient: Yes As always, we strongly encourage a healthy diet and making physical activity a part of your every day life. If you have questions about how or where to start, please contact the office. Functional Status Description No Information Available Mental Status Description No Information Available Referrals Refer to Reason for Referral Status Appt Date Claudette Neal PA-C elevated Alk Phos and weight loss jw Scheduled [address] [place] [address] [phone]
--- NOTE | 2018-12-04 13:14 | ED ---
Abdominal Pain/Male - HPI Summary HPI Summary: This patient is a 83 year old M [facility] by daughter with a chief complaint of abdominal pain since 12/02/18. Patient states that in the afternoon on 12/02/18 he felt abdominal pain which is characterized as "feeling of congestion". Patient states that was not able to sleep. Patient states that on 12/03/18 at 0430 he was came to the ED. During his visit the patient denied blood work and the US. Patient then left and went home. Patient states that the pain had worsened as a result he came to the ED. The patient rates the pain 8/10 in severity. Symptoms aggravated by nothing. Symptoms alleviated by Tylenol. Patient reports abdominal pain. Patient denies diarrhea, vomiting, nausea and urinary frequency. Patient has a PMHx of lyme disease. Patient denies EtOH use, substance abuse, tobacco abuse. Medications reviewed. Allergies noted Allergies Allergy/AdvReac Type Severity Reaction Status Date / Time No Known Allergies Allergy Verified 12/03/18 04:56 Active Medications Generic Name Dose Route Start Last Admin Trade Name Freq PRN Reason Stop Dose Admin Acetaminophen 650 mg 12/04/18 16:56 Tylenol Tab* PO Q4H PRN MILD PAIN or TEMP > 100.4 Heparin Sodium (Porcine) 5,000 units 12/04/18 22:00 Heparin Vial(*) SUBCUT Q8HR GLENDY Hydromorphone HCl 0.5 mg 12/04/18 16:56 Dilaudid Inj1s* IV SLOW PU Q1H PRN PAIN - SEVERE Sodium Chloride 1,000 mls @ 100 mls/hr 12/04/18 17:00 Ns 0.9% 1000 Ml IV PER RATE GLENDY Piperacillin Sod/Tazobactam 100 mls @ 25 mls/hr 12/04/18 17:00 Sod 3.375 gm/ Sodium Chloride IVPB Q8H GLENDY Ondansetron HCl 4 mg 12/04/18 16:56 Zofran Inj* IV Q4H PRN NAUSEA/VOMITING - History of Current Complaint Chief Complaint: EDAbdPain Stated Complaint: ABDOMINAL PAIN PER PT Time Seen by Provider: 12/04/18 12:38 Hx Obtained From: Patient, Family/Transitional Care Nurse - daughter Onset/Duration: Lasting Days - 12/02/18 Timing: Constant Severity Currently: Severe Pain Intensity: 8 Pain Scale Used: 0-10 Numeric Location: Discrete At: RUQ Radiates: No Character: Other: - "feeling of congestion" Aggravating Factor(s): Nothing Alleviating Factor(s): Nothing Associated Signs And Symptoms: Negative: Fever, Nausea, Vomiting - Allergies/Home Medications Allergies/Adverse Reactions: Allergies Allergy/AdvReac Type Severity Reaction Status Date / Time No Known Allergies Allergy Verified 12/03/18 04:56 Home Medications: Home Medications NK [No Home Medications Reported] 12/04/18 [History Confirmed 12/04/18] PMH/Surg Hx/FS Hx/Imm Hx Endocrine/Hematology History: Denies: Hx Diabetes, Hx Thyroid Disease Cardiovascular History: Denies: Hx Hypertension Respiratory History: Denies: Hx Asthma, Hx Chronic Obstructive Pulmonary Disease (COPD) GI History: Denies: Hx Ulcer Sensory History: Denies: Hx Legally Blind, Hx Deafness Opthamlomology History: Denies: Hx Legally Blind - Surgical History Surgery Procedure, Year, and Place: no abdominal surgery Infectious Disease History: No Infectious Disease History: Denies: Hx Hepatitis, Hx Human Immunodeficiency Virus (HIV), Traveled Outside the in Last 30 Days - Family History Known Family History: Positive: Unknown Negative: Cardiac Disease - Social History Alcohol Use: None Hx Substance Use: No Substance Use Type: Reports: None Hx Tobacco Use: No Smoking Status (MU): Never Smoked Tobacco Review of Systems Negative: Fever Positive: Abdominal Pain. Negative: Vomiting, Diarrhea Negative: frequency - urinary frequency All Other Systems Reviewed And Are Negative: Yes Physical Exam - Summary Physical Exam Summary: Constitutional: Well-developed, Well-nourished, Alert. (-) Distressed Skin: Warm, Dry HENT: Normocephalic; Atraumatic Eyes: Conjunctiva normal Neck: Musculoskeletal ROM normal neck. (-) JVD, (-) Stridor, (-) Tracheal deviation Cardio: Rhythm regular, rate normal, Heart sounds normal; Intact distal pulses; The pedal pulses are 2+ and symmetric. Radial pulses are 2+ and symmetric. (-) Murmur Pulmonary/Chest wall: Effort normal. (-) Respiratory distress, (-) Wheezes, (-) Rales Abd: Soft, (-) tenderness, (-) Distension, (-) Guarding, (-) Rebound Musculoskeletal: (-) Edema Lymph: (-) Cervical adenopathy Neuro: Alert, Oriented x3 Psych: Mood and affect Normal Triage Information Reviewed: Yes Vital Signs On Initial Exam: Initial Vitals Temp Pulse Resp BP Pulse Ox 98 F 92 17 149/77 99 12/04/18 12:21 12/04/18 12:21 12/04/18 12:21 12/04/18 12:21 12/04/18 12:21 Vital Signs Reviewed: Yes Diagnostics - Vital Signs Vital Signs Temp Pulse Resp BP Pulse Ox 12/04/18 12:21 98 F 92 17 149/77 99 - Laboratory Result Diagrams: 12/04/18 13:10 12/04/18 13:10 Lab Statement: Any lab studies that have been ordered have been reviewed, and results considered in the medical decision making process. - CT Abdomen/Pelvis CT CT Interpretation Completed By: Radiologist Summary of CT Findings: Abdomen/Pelvis CT reveals, per radiologist, IMPRESSION: DISTENDED GALLBLADDER WITH GALLBLADDER THICKENING WITH MULTIPLE LARGE STONES AND A SMALL AMOUNT OF FREE FLUID WITHIN THE PELVIS. THE DIFFERENTIAL INCLUDES ACUTE CHOLECYSTITIS IN THE CORRECT CLINICAL SETTING. ED Physician has reviewed this report. Re-Evaluation - Re-Evaluation First Eval Re-Evaluation Time: 14:21 Change: Unchanged Comment: Dr. Abdullahi states that he will come down and evalute patient. Abdominal Pain Male Course/Dx - Course Course Of Treatment: Patient is here with midepigastric pain. Patient has been diagnosed with gallbladder sludge in October. Upon arrival, patient's overall well-appearing with a benign exam. Patient had blood performance and elevated T bili of 1.1. Given patient's age, a CT scan was ordered which showed acute cholecystitis. He was admitted to surgery. - Diagnoses Provider Diagnoses: Cholecystitis Is Visit Related: No - Provider Notifications Discussed Care Of Patient With: Marques Abdullahi - Hospitalist Time Discussed With Above Provider: 15:26 Instructed by Provider To: Other - Dr. Abdullahi came and saw patients and agrees that patient should be admitted to the hospital. Discharge ED - Sign-Out/Discharge Documenting (check all that apply): Patient Departure - admitted Patient Received Moderate/Deep Sedation with Procedure: No - Discharge Plan Condition: Stable Disposition: ADMITTED TO [facility] - Billing Disposition and Condition Condition: STABLE Disposition: Admitted to [facility] - Attestation Statements Document Initiated by Scribe: Yes Documenting Scribe: Brenda Mathew Provider For Whom Scribe is Documenting (Include Credential): Dr. Ced Lepe MD Scribe Attestation: I, Bredna Mathew, beniibed for Dr. Ced Lepe MD on 12/04/18 at 2019. Scribe Documentation Reviewed: Yes Provider Attestation: The documentation as recorded by the Brenda goncalves accurately reflects the service I personally performed and the decisions made by me, Dr. Ced Lepe MD Status of Scribe Document: Viewed
[2018-12-04 13:19] LABS: ABS Lymphocytes 0.6 10^3/ul (1.0-4.8); ABS Monocytes 0.7 10^3/ul (0-0.8); ABS Neutrophils 6.9 10^3/ul (1.5-7.7); Hematocrit 39 % (42-52); Hemoglobin 12.9 g/dL (14.0-18.0); Lymphocyte % 7.4 %; Mean Corpuscular HGB Conc 33 g/dL (31-36); Mean Corpuscular Hemoglobin 28 pg (27-31); Mean Corpuscular Volume 85 fL (80-94); Platelet Count 127 10^3/uL (150-450); Red Blood Count 4.56 10^6 /uL (4.18-5.48); Red Cell Distribution Width 17 % (10-15); White Blood Count 8.3 10^3/uL (3.5-10.8)
[2018-12-04 13:36] LABS: ALT 12 U/L (7-52); AST 15 U/L (13-39); Albumin 3.8 g/dL (3.2-5.2); Albumin/Globulin Ratio 1.5 (1-3); Alkaline Phosphatase 61 U/L (34-104); Anion Gap 7 mmol/L (2-11); BUN/Creatinine Ratio 11.3 (8-20); Blood Urea Nitrogen 7 mg/dL (6-24); CO2 Carbon Dioxide 28 mmol/L (22-32); Calcium 8.8 mg/dL (8.6-10.3); Chloride 100 mmol/L (101-111); EGFR African American 149.9 (>60); EGFR Non-African American 123.9 (>60); Globulin 2.6 g/dL (2-4); Glucose 156 mg/dL (70-100); Potassium 3.8 mmol/L (3.5-5.0); Sodium 135 mmol/L (135-145); Total Protein 6.4 g/dL (6.4-8.9)
[2018-12-04] MEDS ORDERED: Iohexol 300* (CONTRAST) 10 ML SDV IV ONE (13:52)
[2018-12-04] MEDS ORDERED: HYDROmorphone INJ* 0.5 MG/0.5 ML SYRINGE IV SLOW PU PRN (16:56)
[2018-12-04] MEDS ORDERED: Ondansetron INJ* 2 MG/ML VIAL IV PRN (16:56)
[2018-12-04] MEDS ORDERED: Piperacillin/Tazobactam VIAL*) 3.375 GM in NS 0.9% 100 ML* 100 ML IVPB SCH (17:00)
[2018-12-04] MEDS: NS 0.9% 1000 ML** 1,000 ML IV SCH (18:40)
[2018-12-04] MEDS ORDERED: Zosyn per Pharmacy* NOTE FOLLOW UP PRN (18:58)
[2018-12-04] MEDS ORDERED: ZOSYN 3.375 GM x ONE DOSE over 30 miuntes IVPB ×2 (19:30)
[2018-12-04] MEDS: Acetaminophen TAB* 325 MG PO PRN (20:05)
--- NOTE | 2018-12-04 20:50 | HP ---
CC: Dr. Bjorn Harley * HISTORY AND PHYSICAL: DATE OF ADMISSION: 12/04/18 ATTENDING SURGEON: Dr. Marques Abdullahi.* (DICTATED BY DANIEL THOMAS) CHIEF COMPLAINT: Abdominal pain, nausea, and vomiting. HISTORY OF PRESENT ILLNESS: This is an 83-year-old generally healthy male, recently diagnosed with Lyme disease and recently completed a course of doxycycline, who beginning midday on Monday noted onset of upper abdominal pain. He described this as being located in the midepigastric region with some distribution laterally, right greater than left. He has had some associated nausea, but no vomiting, chills, but no fever. He had a normal bowel movement on Monday. His pain became more and intense and steady (it had been previously been colicky). He presented to the ED early Monday morning and workup ensued. After a couple of hours, he did not feel that he needed to stay in the ED and left only to return again today because of persistent pain. He states the pain has been as high as 10/10, though at the present time is 5 or less. He has not had any similar episodes of pain in the past, though did have a couple of episodes of vomiting within the past 3 weeks that were unassociated with pain. There is no family history of gallbladder disease. He states that his urine has been normal color. He was seen in the ED with Dr. Abdullahi. The patient has had significant anorexia with a reported 30-pound weight loss over the past 2 months. He denies dysphagia or active vomiting other than as noted above. He just does not have much energy nor much appetite. He has never undergone colonoscopy, though has had stool test for occult blood which has been negative. PAST MEDICAL HISTORY: Recent Lyme disease. No other chronic medical problems including cardiovascular disease, diabetes, malignancy, bleeding, or clotting disorders. PAST SURGICAL HISTORY: His only previous surgery is tonsillectomy remotely. CURRENT MEDICATIONS: 1. Recently finished a 30-day course of doxycycline. 2. He has recently been using a turmeric supplement. DRUG ALLERGIES: None known. FAMILY HISTORY: Negative for anesthesia problems, bleeding or clotting disorders. SOCIAL HISTORY: The patient lives alone, though his daughter lives nearby and she is present during the interview today. 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 He denies use of tobacco, alcohol, or recreational drugs. REVIEW OF SYSTEMS: General: No recent constitutional symptoms or acute illnesses other than described in the HPI. HEENT: No problems reported. Cardiovascular: No chest pain, palpitations, history of hypertension. Respiratory: No history of asthma, chronic cough or shortness of breath. GI: As above per HPI. No additions. : No hematuria, dysuria, or increased frequency. Endocrine: No diabetes or thyroid dysfunction. PHYSICAL EXAMINATION GENERAL: Well-nourished, but somewhat thin, otherwise well-appearing male in no acute distress. VITAL SIGNS: Height 5 feet 8 inches, weight 123 pounds, BMI 18.7, temperature 98, blood pressure 163/83, pulse 87, respirations 17, room air saturation 96%. HEENT: Pupils equal and round, reactive. EOMs intact. No conjunctival pallor or scleral icterus. Oropharynx: Teeth in good repair. No intraoral lesions. NECK: No lymphadenopathy, thyromegaly, or masses. LUNGS: Clear to auscultation. No rales or wheezes. HEART: Regular rate and rhythm. No murmur noted. ABDOMEN: Flat, nondistended. Bowel sounds present, soft with fairly well- localized tenderness to the right upper quadrant and midepigastrium. There is a equivocal [place] sign. The reminder of the abdomen is soft, nontender without palpable masses or organomegaly. No palpable inguinal hernias. GENITALIA: Otherwise not examined. EXTREMITIES: No edema. Distal pulses palpable bilaterally (dorsalis pedis and posterior tibial). RECTAL: Not done. BACK: No spinous process or CVA tenderness. NEUROLOGICAL: Grossly intact. SKIN: Warm and dry. No suspicious rashes or lesions noted (he did have a rash of both lower extremities at the time of diagnosis of Lyme disease approximately 1 month ago). DIAGNOSTIC STUDIES/LAB DATA: Laboratory of note, white blood cell count 8300, hemoglobin 12.9, platelet count 127. Differential normal. Chemistries notable for chloride of 100, glucose of 156, total bilirubin of 1.1. Other liver function tests are normal. Lipase is normal at less than 10. Ultrasound had been done on 10/26/18 for indication of elevated liver function tests. It showed multiple stones with sludge, but a normal common bile duct and no gallbladder wall thickening. CT scan of the abdomen and pelvis today, was reviewed personally and with Dr. Abdullahi. This is showing a distended gallbladder with gallbladder thickening and multiple large stones as well as a small amount of free fluid in the pelvis. IMPRESSION: Acute cholecystitis; cholelithiasis. PLAN: Admission for IV antibiotics, IV hydration, and somewhat urgent cholecystectomy. Dr. Abdullahi explained the indications for the surgery to the patient and his daughter. He is aware of the alternatives as well as risks and benefits and would like to proceed as planned. DANIEL THOMAS [id number]/[facility] #: [id number] MTDD
[2018-12-04] MEDS: Piperacillin/Tazobactam VIAL*) 3.375 GM in NS 0.9% 100 ML* 100 ML IVPB SCH (23:22)
[2018-12-04] MEDS: Heparin VIAL(*) 5000 UNITS/ML VIAL (FIVE THOUSAND) SUBCUT SCH (23:25)
[2018-12-05] MEDS: Heparin VIAL(*) 5000 UNITS/ML VIAL (FIVE THOUSAND) SUBCUT SCH ×4 (04:29→22:08)
[2018-12-05] MEDS: NS 0.9% 1000 ML** 1,000 ML IV SCH ×2 (05:21→15:40)
[2018-12-05 06:52] LABS: ABS Lymphocytes 0.5 10^3/ul (1.0-4.8); ABS Monocytes 0.7 10^3/ul (0-0.8); ABS Neutrophils 6.7 10^3/ul (1.5-7.7); Hematocrit 38 % (42-52); Hemoglobin 13.1 g/dL (14.0-18.0); Lymphocyte % 6.8 %; Mean Corpuscular HGB Conc 34 g/dL (31-36); Mean Corpuscular Hemoglobin 29 pg (27-31); Mean Corpuscular Volume 85 fL (80-94); Mean Platelet Volume 9.6 fL (7.4-10.4); Nucleated Red Blood Cells % 0.1; Platelet Count 124 10^3/uL (150-450); Red Blood Count 4.51 10^6 /uL (4.18-5.48); Red Cell Distribution Width 17 % (10-15)
[2018-12-05 07:07] LABS: Albumin 3.5 g/dL (3.2-5.2); Albumin/Globulin Ratio 1.4 (1-3); BUN/Creatinine Ratio 11.7 (8-20); Calcium 8.6 mg/dL (8.6-10.3); EGFR African American 155.7 (>60); EGFR Non-African American 128.7 (>60); Globulin 2.5 g/dL (2-4); Potassium 3.5 mmol/L (3.5-5.0); Total Bilirubin 1.2 mg/dL (0.2-1.0)
[2018-12-05] MEDS: Piperacillin/Tazobactam VIAL*) 3.375 GM in NS 0.9% 100 ML* 100 ML IVPB SCH ×3 (07:30→23:33)
[2018-12-05] MEDS ORDERED: fentaNYL* 50 MCG/ML 2 ML VIAL (100 MCG VIAL) ONE ×2 (09:36→11:08)
[2018-12-05] MEDS ORDERED: Bupivacaine 0.25% EPI 200,000* 30 ML SDV ONE (09:59)
[2018-12-05] MEDS ORDERED: Propofol* 10 MG/ML 20 ML BTL ONE ×2 (10:43→11:19)
[2018-12-05] MEDS ORDERED: Dexamethasone IV* 4 MG/ML 1 ML (4 MG) ONE (10:43)
[2018-12-05] MEDS ORDERED: Succinylcholine* 20 MG/ML 10 ML VIAL ONE (10:43)
[2018-12-05] MEDS ORDERED: Ondansetron INJ* 2 MG/ML VIAL ONE (10:43)
[2018-12-05] MEDS ORDERED: Lidocaine 2% PF * 5 ML VIAL ONE (10:44)
[2018-12-05] MEDS ORDERED: Phenylephrine 40 MCG/ML SYRINGE ONE (10:50)
[2018-12-05] MEDS ORDERED: Rocuronium* 10 MG/ML VIAL ONE (11:01)
[2018-12-05] MEDS ORDERED: Neostigmine Methylsulfate* 1 MG/ML 10 ML VIAL (1 mg/ml) ONE (11:40)
[2018-12-05] MEDS ORDERED: Glycopyrrolate IV* 0.2 MG/ML 1 ML VIAL ONE (11:40)
[2018-12-05] MEDS ORDERED: Acetaminophen TAB* 325 MG ONE (15:03)
[2018-12-05] MEDS: oxyCODONE/Acetamin 5/325 MG* TAB PO PRN ×2 (19:43→23:34)
[2018-12-05] MEDS: Acetaminophen TAB* 325 MG PO PRN (20:53)
--- NOTE | 2018-12-05 21:31 | OP ---
CC: Bjorn Harley MD * DATE OF OPERATION: 12/05/18 - ROOM #339 DATE OF : 35 SURGEON: Marques Abdullahi MD FOOT GATHERER: DANIEL Nicholas ANESTHESIOLOGIST: Lanie Adair MD ANESTHESIA: General endotracheal. PRE-OP DIAGNOSIS: Acute cholecystitis. POST-OP DIAGNOSIS: Acute cholecystitis. OPERATIVE PROCEDURE: Laparoscopic cholecystectomy. ESTIMATED BLOOD LOSS: 300 mL. IV FLUIDS: Crystalloid. SPECIMENS: Gallbladder and contents. DRAINS: 7-mm Reji-Chung. COMPLICATIONS: None. COUNTS: The instrument, needle, and sponge counts were correct. DESCRIPTION OF PROCEDURE: The patient was brought to the operating room and placed on the table supine. Sequential compression devices were placed on both lower extremities and general anesthesia was administered. The abdomen was prepped and draped in usual sterile fashion and a time-out was performed. Local anesthetic was infiltrated into the skin and soft tissue prior to making each incision. Entry into the abdomen was through a transumbilical vertical incision using an open technique. After accessing the peritoneal cavity, a 12- mm trocar was placed and carbon dioxide was insufflated to a pressure of 15 mmHg. Under direct visualization, 5-mm trocars were placed in the epigastrium and 2 in the right upper quadrant. Inspection revealed a massively distended gallbladder with acute inflammatory changes. In order to manipulate, the gallbladder was first drained. This was performed by creating a cholecystotomy with cautery and then using the endoscopic 5-mm suction, the gallbladder was emptied of thick black bile. Cholecystotomy site was then grasped with a retractor and was retracted cephalad. There were numerous adhesions of the gallbladder to the distal stomach/proximal duodenum and these were taken down using sharp dissection. The gallbladder wall was quite edematous and this aided in the dissection by allowing entry into these planes bluntly. The dissection of the cystic duct and cystic artery was able to be accomplished bluntly and a critical view was able to be obtained. The 2 structures were doubly clipped and divided. The gallbladder was divided from attachments to the liver staying in the appropriate plane. At the liver edge, there was some oozing at the edge of the gallbladder fossa, which was controlled with endoscopic clip placement. Inspection revealed that there was a rent of the edge of the liver just to the left side of the gallbladder fossa that appeared to be due to traction on the gallbladder. This did not appear to be bleeding, but was packed with Surgicel. Surgicel was also placed in the gallbladder fossa after careful lavage. The gallbladder was then retrieved using an endoscopic retrieval bag through the umbilical site. Due to the very large gallstone within the gallbladder, this incision had to be slightly enlarged and the gallbladder was opened within the exteriorized portion of the bag, so the gallstone could be crushed and the gallstone and gallbladder were removed in a piecemeal fashion. Subsequently, a FABY drain size 7-mm was placed into the peritoneal cavity and positioned in the area of the gallbladder fossa and Morison's pouch. This was withdrawn through the lateral 5-mm port site, sutured to the skin with 3-0 Prolene and placed to suction bulb. A copious lavage of the abdomen had been performed with about 3 L of warm saline until clear. The clips were noted to be intact and hemostatic at the time that the ports were removed. Carbon dioxide was released. The umbilical wound was closed with 0 Vicryl in interrupted [id number] fashion to approximate the fascia. All skin incisions were closed with 4-0 Monocryl in a subcuticular fashion and Steri-Strips were applied. The patient tolerated this procedure well, was extubated and transferred to recovery in stable condition. [id number]/[facility] #: [id number] NEHEMIAH
[2018-12-06] MEDS: NS 0.9% 1000 ML** 1,000 ML IV SCH ×2 (01:29→11:49)
[2018-12-06] MEDS: Acetaminophen TAB* 325 MG PO PRN (05:00)
[2018-12-06] MEDS: Heparin VIAL(*) 5000 UNITS/ML VIAL (FIVE THOUSAND) SUBCUT SCH (05:01)
[2018-12-06 05:36] LABS: ABS Lymphocytes 0.5 10^3/ul (1.0-4.8); ABS Monocytes 0.8 10^3/ul (0-0.8); ABS Neutrophils 8.1 10^3/ul (1.5-7.7); Hematocrit 35 % (42-52); Hemoglobin 11.5 g/dL (14.0-18.0); Lymphocyte % 5.2 %; Mean Corpuscular HGB Conc 33 g/dL (31-36); Mean Corpuscular Hemoglobin 28 pg (27-31); Mean Corpuscular Volume 86 fL (80-94); Mean Platelet Volume 9.6 fL (7.4-10.4); Platelet Count 113 10^3/uL (150-450); Red Blood Count 4.07 10^6 /uL (4.18-5.48); Red Cell Distribution Width 17 % (10-15); White Blood Count 9.3 10^3/uL (3.5-10.8)
[2018-12-06 05:58] LABS: Albumin 3.2 g/dL (3.2-5.2); Albumin/Globulin Ratio 1.4 (1-3); Calcium 8.3 mg/dL (8.6-10.3); EGFR African American 149.9 (>60); EGFR Non-African American 123.9 (>60); Globulin 2.3 g/dL (2-4); Potassium 4.6 mmol/L (3.5-5.0); Total Bilirubin 0.8 mg/dL (0.2-1.0); Total Protein 5.5 g/dL (6.4-8.9)
--- NOTE | 2018-12-06 08:13 | PN ---
Progress Note - Progress Note Date of Service: 12/06/18 SOAP: Subjective: Pain in RUQ and umbilicus. He initially describes as "gas or air moving." Has only had a few ice chips, not thirsty. Does not feel he can drink much. No flatus. Denies N/V. Lives alone but daughter would stay with him after d/c. Objective: Vital Signs Temp 98.2 F 12/06/18 03:39 Pulse 82 12/06/18 03:39 Resp 18 12/06/18 04:29 BP 127/57 12/06/18 03:39 Pulse Ox 99 12/06/18 03:39 Gen: in bed; appears in mild discomfort. Abd: ND, soft with tenderness at incisions; FABY intact with SS drainage. Intake & Output 12/05/18 12/06/18 12/06/18 18:59 06:59 18:59 Intake Total 1900 1189 100 Output Total 500 430 200 Balance 1400 759 -100 Weight 121 lb Intake: IV Fluids 1900 849 ABX - ZOSYN 110 Lt. anticubital 1900 NS (0.9%) 739 Oral 340 100 Output: FABY #1 100 30 Urine 400 400 200 Laboratory Results - last 24 hr 12/06/18 12/06/18 05:02 05:02 WBC 9.3 RBC 4.07 L Hgb 11.5 L Hct 35 L MCV 86 MCH 28 MCHC 33 RDW 17 H Plt Count 113 L MPV 9.6 Neut % (Auto) 86.5 Lymph % (Auto) 5.2 [place] % (Auto) 8.2 Eos % (Auto) 0.0 Baso % (Auto) 0.1 Absolute Neuts (auto) 8.1 H Absolute Lymphs (auto) 0.5 L Absolute Monos (auto) 0.8 Absolute Eos (auto) 0.0 Absolute Basos (auto) 0.0 Absolute Nucleated RBC 0.0 Nucleated RBC % 0.0 Sodium 137 Potassium 4.6 Chloride 106 Carbon Dioxide 25 Anion Gap 6 BUN 13 Creatinine 0.62 L Est GFR ( Amer) 149.9 Est GFR (Non-Af Amer) 123.9 BUN/Creatinine Ratio 21.0 H Glucose 99 Calcium 8.3 L Total Bilirubin 0.80 AST 28 ALT 20 Alkaline Phosphatase 55 Total Protein 5.5 L Albumin 3.2 Globulin 2.3 Albumin/Globulin Ratio 1.4 Active Medications Generic Name Dose Route Start Last Admin Trade Name Daveq PRN Reason Stop Dose Admin Acetaminophen 650 mg 12/04/18 16:56 12/06/18 05:00 Tylenol Tab* PO 650 mg Q4H PRN Administration MILD PAIN or TEMP > 100.4 Heparin Sodium (Porcine) 5,000 units 12/04/18 22:00 12/06/18 05:01 Heparin Vial(*) SUBCUT 5,000 units Q8HR GLENDY Administration Hydromorphone HCl 0.5 mg 12/04/18 16:56 Dilaudid Inj* IV SLOW PU Q1H PRN PAIN - SEVERE Sodium Chloride 1,000 mls @ 100 mls/hr 12/04/18 17:00 12/06/18 01:29 Ns 0.9% 1000 Ml IV 100 mls/hr PER RATE GLENDY Administration Piperacillin Sod/Tazobactam 100 mls @ 25 mls/hr 12/04/18 23:45 12/05/18 23:33 Sod 3.375 gm/ Sodium Chloride IVPB 25 mls/hr 0745,1545,[id number] GLENDY Administration Ondansetron HCl 4 mg 12/04/18 16:56 Zofran Inj* IV Q4H PRN NAUSEA/VOMITING Oxycodone/Acetaminophen 1 tab 12/05/18 15:59 12/05/18 23:34 Percocet 5/325 Tab* PO 1 tab Q4H PRN Administration PAIN - MODERATE Pharmacy Consult 1 note 12/04/18 18:58 Zosyn Per Pharmacy* FOLLOW UP . PRN PER PROTOCOL Assessment: POD#1 s/p lap maddy for acute cholecystitis. Ileus. Thrombocytopenia--worsening. Plan: Diet as tolerated. D/c Zosyn and Heparin given decr Plts. Repeat CBC in am. Likely d/c home tomorrow.
[2018-12-06] MEDS: Piperacillin/Tazobactam VIAL*) 3.375 GM in NS 0.9% 100 ML* 100 ML IVPB SCH (08:52)
--- NOTE | 2018-12-06 14:41 | PN ---
Progress Note - Progress Note Date of Service: 12/06/18 Note: SUBJECTIVE: Patient is post-op day one for lap cholecystectomy. Patient is feeling well. He reports mild abdominal discomfort that is intermittent and localized to the RUQ with deep inspiration or coughing. No pain otherwise noted by patient. He is ambulating well. He has not had a bowel movement or flatus since Monday; he is able to urinate. He denies N/V and has a mild appetite. He has been eating small portions but would "like to see himself advance his diet more". He has no complications with his drain. No chest pain, SOB or palpitations. OBJECTIVE Vital Signs Temp 97.4 F 12/06/18 11:52 Pulse 78 12/06/18 11:52 Resp 16 12/06/18 11:52 BP 127/59 12/06/18 11:52 Pulse Ox 100 12/06/18 11:52 Intake & Output 12/05/18 12/06/18 12/06/18 18:59 06:59 18:59 Intake Total 1900 1189 1701 Output Total 500 430 325 Balance 6716 005 5863 Weight 121 lb Intake: IV Fluids 8721 189 1520 ABX - ZOSYN 110 109 Lt. anticubital 1900 NS (0.9%) 739 1192 Oral 340 400 Output: FABY #1 100 30 25 Urine 400 400 300 Sodium 137 mmol/L (135-145) 12/06/18 05:02 Potassium 4.6 mmol/L (3.5-5.0) 12/06/18 05:02 BUN 13 mg/dL (6-24) 12/06/18 05:02 Creatinine 0.62 mg/dL (0.67-1.17) L 12/06/18 05:02 Calcium 8.3 mg/dL (8.6-10.3) L 12/06/18 05:02 AST 28 U/L (13-39) 12/06/18 05:02 ALT 20 U/L (7-52) 12/06/18 05:02 PE: GENERAL: Patient is in NAD, laying on the bed attempting to nap. He is calm and cooperative, alert and oriented X3. SKIN: Skin is dry and patient is without palor. No jaundice. HEENT: NCAT. EDMUND/ EOMI. Sclera non icteric and conjunctiva clear. No lymphadenopathy. Posterior pharynx is without erythema or exudates. CV/PV: RRR. No murmurs rubs or gallops. Normal S1/S2. Pulses 2+ and equal bilaterally in the UE/LE. No swelling or edema in the UE/LE bilaterally. SCD's placed on both calfs. RESPIRATORY: Lungs CTA with no adventitious sounds in all lung platt. ABDOMEN: Soft and nondistended. Mild tenderness to palpation of the epigastric area and RUQ/LUQ. Hypoactive bowel sounds in all four quadrants. FABY drain placed on right side. Drain contains 10cc red fluid. Drain site is without erythema, mild yellow drainage noted on bandage. Incision sites at abdomen are clean and dry, without erythema, edema or drainage MSK: Full ROM of upper and lower extremities. Strength 4/5 in the UE and LE bilaterally. ASSESSMENT: ]Patient appears well post- op day one for cholecystectomy due to cholelithiasis and cholecystitis. Patient is experiencing minimal pain and is ambulating well. He is in good spirits and says he has energy. No nausea/ vomiting and able to tolerate diet. It is concerning that the patient has not had a BM and is still unable to pass gas and there are hypoactive bowel sounds. Concern for ileus. Continues to urinate. RBC 4.07, HGB 11.5, HCT 35%, platelets 113 - continued thrombocytopenia. PLAN: Continue to monitor for pain. Encourage frequent ambulation and observe for BM. Heparin and abx discontinued; repeat CBC/ CMP. Possible d/c tomorrow pending labs and progress through the night. Signed, SOBIA Izquierdo
[2018-12-06] MEDS: D5W 1/2 NS KCl 20 Meq 1000 ML* 1,000 ML IV SCH (19:04)
[2018-12-07] MEDS: D5W 1/2 NS KCl 20 Meq 1000 ML* 1,000 ML IV SCH (05:04)
[2018-12-07 05:40] LABS: ABS Lymphocytes 0.9 10^3/ul (1.0-4.8); ABS Monocytes 0.5 10^3/ul (0-0.8); ABS Neutrophils 3.9 10^3/ul (1.5-7.7); Eosinophil % 0.3 %; Hematocrit 34 % (42-52); Hemoglobin 11.3 g/dL (14.0-18.0); Lymphocyte % 17.1 %; Mean Corpuscular HGB Conc 33 g/dL (31-36); Mean Corpuscular Hemoglobin 28 pg (27-31); Mean Corpuscular Volume 86 fL (80-94); Mean Platelet Volume 8.9 fL (7.4-10.4); Nucleated Red Blood Cells % 0.1; Platelet Count 130 10^3/uL (150-450); Red Cell Distribution Width 17 % (10-15); White Blood Count 5.4 10^3/uL (3.5-10.8)
--- NOTE | 2018-12-07 09:09 | PN ---
Progress Note - Progress Note Date of Service: 12/07/18 SOAP: Subjective: Feeling better. Requiring no pain medication. Shaved this morning and has been up and walking. Tolerated liquids and some solids last night. Denies N/V/ flatus. Objective: Vital Signs Temp 98.6 F 12/07/18 07:40 Pulse 82 12/07/18 07:40 Resp 18 12/07/18 08:00 BP 138/72 12/07/18 07:40 Pulse Ox 100 12/07/18 07:40 Gen: well appearing. Lungs: CTA Abd: +BS, softly distended; incisions dry and intact; FABY SS. Intake & Output 12/06/18 12/07/18 12/07/18 18:59 06:59 18:59 Intake Total 1701 2116 Output Total 675 1200 200 Balance 1026 916 -200 Intake: IV Fluids 1301 1706 ABX - ZOSYN 109 D5W 1/2 NS 20 meq KCL 981 NS (0.9%) 1192 725 Oral 400 410 Output: FABY #1 25 50 Urine 650 1150 200 Laboratory Results - last 24 hr 12/07/18 05:08 WBC 5.4 RBC 4.00 L Hgb 11.3 L Hct 34 L MCV 86 MCH 28 MCHC 33 RDW 17 H Plt Count 130 L MPV 8.9 Neut % (Auto) 73.0 Lymph % (Auto) 17.1 [place] % (Auto) 9.3 Eos % (Auto) 0.3 Baso % (Auto) 0.3 Absolute Neuts (auto) 3.9 Absolute Lymphs (auto) 0.9 L Absolute Monos (auto) 0.5 Absolute Eos (auto) 0.0 Absolute Basos (auto) 0.0 Absolute Nucleated RBC 0.0 Nucleated RBC % 0.1 Assessment: POD#2 s/p lap maddy. Ileus resolving. Improved thrombocytopenia. Stable for discharge. Plan: Continue diet; encourage fluids. D/c FABY. Discharge home F/u with dc Monday.
--- NOTE | 2018-12-07 11:01 | PN ---
Progress Note - Progress Note Date of Service: 12/07/18 Note: Procedure Note: RLQ FABY drain with minimal serosanguinous output was removed. drain site was then closed with steri strips 2x2 dressing and paper tape to cover patient tolerated the procedure well
--- NOTE | 2018-12-07 11:24 | PN ---
Progress Note - Progress Note Date of Service: 12/07/18 Note: SUBJECTIVE: Patient feels well and got up to shave this morning. Able to ambulate and in minimal pain; not taking pain medications. Small appetite and was able to eat dinner last night; no N/V. Able to urinate but still reports no bm or flatus. OBJECTIVE: Vital Signs Temp 98.6 F 12/07/18 07:40 Pulse 82 12/07/18 07:40 Resp 18 12/07/18 08:00 BP 138/72 12/07/18 07:40 Pulse Ox 100 12/07/18 07:40 Intake & Output 12/06/18 12/07/18 12/07/18 18:59 06:59 18:59 Intake Total 1701 2116 240 Output Total 675 1200 790 Balance 1026 916 -550 Intake: IV Fluids 1301 1706 ABX - ZOSYN 109 D5W 1/2 NS 20 meq KCL 981 NS (0.9%) 1192 725 Oral 400 410 240 Output: FABY #1 25 50 30 Urine 650 1150 760 Sodium 137 mmol/L (135-145) 12/06/18 05:02 Potassium 4.6 mmol/L (3.5-5.0) 12/06/18 05:02 BUN 13 mg/dL (6-24) 12/06/18 05:02 Creatinine 0.62 mg/dL (0.67-1.17) L 12/06/18 05:02 Calcium 8.3 mg/dL (8.6-10.3) L 12/06/18 05:02 AST 28 U/L (13-39) 12/06/18 05:02 ALT 20 U/L (7-52) 12/06/18 05:02 General: Laying on the bed, able to communicate needs. Pleasant and cooperative and in NAD. Lungs: CTA in all platt CV/PV: RRR, pulses 2+ and equal in the UE and LE. No murmurs, rubs or gallops. No edema Abdomen: Non distended and non tender. Hypoactive bowel sounds. Wound incisions are clean and dry without erythema or drainage. FABY draining red fluid, >20cc. ASSESSMENT/ PLAN: Patient is post-op day 2 for lap cholecystectomy. Patient appears well and is in minimal pain. He is able to ambulate and shave, but still has concerns about not having bm. Thrombocytopenia is resolving after discontinuing abx and anticoagulant. Patient has no signs of infection. FABY drainage is appropriate and can be discontinued. Patient okay for discharge this morning. Encouraged patient to continue fluids and hydration and continue to eat solid foods as tolerated. He should continue to monitor pain and call the office with any concerns or worsening symptoms. Follow up in the office next week. Signed, SOBIA Izquierdo
[2018-12-07 11:45] VITALS: BP 133/66
--- NOTE | 2018-12-07 13:51 | DS ---
AMENDED REPORT NOW INCLUDES DESIGNATED COSIGNER DISCHARGE SUMMARY: DATE OF ADMISSION: 12/04/18 DATE OF DISCHARGE: 12/07/18 ADMITTING PHYSICIAN: Dr. Abdullahi.* (DICTATED BY DANIEL RAMIREZ) REASON FOR ADMISSION: Acute cholecystitis. HOSPITAL COURSE: The patient is an 83-year-old gentleman, recently treated for Lyme disease with a 30-day course of doxycycline, who on 12/03/18, began to have right upper quadrant pain colicky with nausea but no vomiting, chills but no fever. Pain increased and he presented to the emergency room Monday morning. After a couple of hours in the ER, the patient felt he wanted to go home, did so and returned later around when the pain became a 10/10. The patient was admitted due to this. A CT scan of the abdomen and pelvis showed a markedly distended gallbladder with gallbladder thickening, multiple large stones as well as a small amount of free fluid in the pelvis. The patient was taken to the operating theater on 12/05/18 for laparoscopic cholecystectomy. The patient tolerated the procedure well and was transferred to the recovery room and then to the surgical care unit for postoperative care. A FABY drain was placed during surgery and was followed during the remainder of the patient's stay along with IV antibiotics. The patient's stay was unremarkable. On , the FABY drain was removed and remainder of the surgical dressings were clean , dry, and intact. Steri-Strips were placed over the drain site. The patient was scheduled for discharge with plan to return to the office next Monday, 12/14, for a postoperative visit with Dr. Abdullahi. CONDITION ON DISCHARGE: Stable, discharged to home. Discharge instructions were given to the patient regarding his diet, medications , activity, and followup. Prescription for Percocet 5/325 was sent to [facility]. All the patient's questions were answered. The patient was discharged to home in stable condition on 12/07/18. Time spent in all discharge activities 30 minutes DANIEL RAMIREZ [id number]/[facility] #: [id number] [facility] CAMPUSAishwarya
== END 2018-12-07 14:12 | disposition home health service (06) | DRG 418 ==
LOC: ED 12:15 → SSU 16:56
PROVIDERS: ADMIT Surgery; ATTEND Surgery
PROC: 0FT44ZZ Resection of Gallbladder, Percutaneous Endoscopic Approach (ICD-10-PCS; principal; 2018-12-05 10:00)
DX: K80.00 Calculus of gallbladder with acute cholecystitis without obstruction (principal); Z68.1 Body mass index [BMI] 19.9 or less, adult; K56.7 Ileus, unspecified; R63.0 Anorexia; D69.6 Thrombocytopenia, unspecified
CPT/HCPCS: 36415; 74177; 80053; 83690; 84484; 85025; 88304; 93005; 96372; 99284; A9270-GY; J0330; J1100; J1644; J2405; J2543; J2704; J2710; J3010; Q9967